=== PATIENT | male | born 1940 | race Caucasian/White ===

== ENCOUNTER → 2019-02-16 | Outpatient (CLI) | payer MEDICARE | LOC: WOUNDCARE 11:42 | PROVIDERS: ATTEND Surgery | DX: L97.512 Non-pressure chronic ulcer of other part of right foot with fat layer exposed (principal); E11.621 Type 2 diabetes mellitus with foot ulcer; E11.42 Type 2 diabetes mellitus with diabetic polyneuropathy; J44.9 Chronic obstructive pulmonary disease, unspecified; I12.0 Hypertensive chronic kidney disease with stage 5 chronic kidney disease or end stage renal disease; E11.22 Type 2 diabetes mellitus with diabetic chronic kidney disease | CPT/HCPCS: 11042 ==

== ENCOUNTER → 2019-03-02 | Outpatient (CLI) | payer MEDICARE | LOC: WOUNDCARE 14:26 | PROVIDERS: ATTEND Surgery | DX: L97.512 Non-pressure chronic ulcer of other part of right foot with fat layer exposed (principal); E11.621 Type 2 diabetes mellitus with foot ulcer; E11.52 Type 2 diabetes mellitus with diabetic peripheral angiopathy with gangrene; E11.42 Type 2 diabetes mellitus with diabetic polyneuropathy; J44.9 Chronic obstructive pulmonary disease, unspecified | CPT/HCPCS: 11042; 87070; 87077; 87186; 87205 ==

== ENCOUNTER → 2019-03-09 | Outpatient (CLI) | payer MEDICARE | LOC: WOUNDCARE 12:57 | PROVIDERS: ATTEND Surgery | DX: E11.621 Type 2 diabetes mellitus with foot ulcer (principal); E11.52 Type 2 diabetes mellitus with diabetic peripheral angiopathy with gangrene; E11.42 Type 2 diabetes mellitus with diabetic polyneuropathy; L97.512 Non-pressure chronic ulcer of other part of right foot with fat layer exposed; I96 Gangrene, not elsewhere classified; J44.9 Chronic obstructive pulmonary disease, unspecified | CPT/HCPCS: 11042 ==

== ENCOUNTER → 2019-03-17 | Outpatient (CLI) | payer MEDICARE | LOC: WOUNDCARE 13:18 | PROVIDERS: ATTEND Surgery | DX: L97.512 Non-pressure chronic ulcer of other part of right foot with fat layer exposed (principal); E11.621 Type 2 diabetes mellitus with foot ulcer; E11.42 Type 2 diabetes mellitus with diabetic polyneuropathy; E11.52 Type 2 diabetes mellitus with diabetic peripheral angiopathy with gangrene; J44.9 Chronic obstructive pulmonary disease, unspecified | CPT/HCPCS: 11042 ==

== ENCOUNTER → 2019-03-24 | Outpatient (CLI) | payer MEDICARE | LOC: WOUNDCARE 13:07 | PROVIDERS: ATTEND Surgery | DX: L97.512 Non-pressure chronic ulcer of other part of right foot with fat layer exposed (principal); E11.621 Type 2 diabetes mellitus with foot ulcer; E11.42 Type 2 diabetes mellitus with diabetic polyneuropathy; E11.52 Type 2 diabetes mellitus with diabetic peripheral angiopathy with gangrene; J44.9 Chronic obstructive pulmonary disease, unspecified | CPT/HCPCS: 11042 ==

== ENCOUNTER → 2019-03-31 | Outpatient (CLI) | payer MEDICARE | LOC: WOUNDCARE 13:11 | PROVIDERS: ATTEND Surgery | DX: E11.621 Type 2 diabetes mellitus with foot ulcer (principal); E11.42 Type 2 diabetes mellitus with diabetic polyneuropathy; E11.52 Type 2 diabetes mellitus with diabetic peripheral angiopathy with gangrene; L97.512 Non-pressure chronic ulcer of other part of right foot with fat layer exposed; J44.9 Chronic obstructive pulmonary disease, unspecified; L92.8 Other granulomatous disorders of the skin and subcutaneous tissue | CPT/HCPCS: 17250 ==

== ENCOUNTER → 2019-04-07 | Outpatient (CLI) | payer MEDICARE | LOC: WOUNDCARE 13:05 | PROVIDERS: ATTEND Surgery | DX: E11.621 Type 2 diabetes mellitus with foot ulcer (principal); E11.42 Type 2 diabetes mellitus with diabetic polyneuropathy; L97.512 Non-pressure chronic ulcer of other part of right foot with fat layer exposed; J44.9 Chronic obstructive pulmonary disease, unspecified | CPT/HCPCS: 99212 ==

== ENCOUNTER 2021-09-01 14:07 | Outpatient (CLI) | payer MEDICARE, BC | END 2021-09-01 15:05 | LOC: SLEEP 14:07 | PROVIDERS: ATTEND Otolaryngology Otolaryngology/Facial Plastic Surgery | DX: G47.33 Obstructive sleep apnea (adult) (pediatric) (principal); G47.10 Hypersomnia, unspecified | CPT/HCPCS: G0399 ==

== ENCOUNTER → 2022-05-21 | Outpatient (CLI) | payer MEDICARE, BC ==
[2022-05-21 14:53] LABS: BASOPHILS % (AUTO) 1 % (0-10); EOSINOPHILS # (AUTO) 0.1 10^3/uL (0.0-0.3); EOSINOPHILS % (AUTO) 1 % (0-10); HEMATOCRIT 37 % (40-54); HEMOGLOBIN 12.3 g/dL (13.3-17.7); LYMPHOCYTES # (AUTO) 0.9 10^3/uL (1.0-4.0); LYMPHOCYTES % (AUTO) 16 % (12-44); MEAN CORPUSCULAR HEMOGLOBIN 28 pg (25-34); MEAN CORPUSCULAR HGB CONC 33 g/dL (32-36); MEAN CORPUSCULAR VOLUME 85 fL (80-99); MEAN PLATELET VOLUME 9.1 fL (9.0-12.2); MONOCYTES # (AUTO) 0.6 10^3/uL (0.0-1.0); MONOCYTES % (AUTO) 11 % (0-12); NEUTROPHILS # (AUTO) 4.2 10^3/uL (1.8-7.8); NEUTROPHILS % (AUTO) 71 % (42-75); PLATELET COUNT 213 10^3/uL (130-400); WHITE BLOOD COUNT 5.9 10^3/uL (4.3-11.0)
[2022-05-21 15:14] LABS: ERYTHROCYTE SEDIMENTATION RATE 20 MM/HR (0-30)
== END ==
LOC: WOUNDCARE 13:30
PROVIDERS: ATTEND Family Medicine
DX: E11.621 Type 2 diabetes mellitus with foot ulcer (principal); L97.522 Non-pressure chronic ulcer of other part of left foot with fat layer exposed; E11.65 Type 2 diabetes mellitus with hyperglycemia; E11.40 Type 2 diabetes mellitus with diabetic neuropathy, unspecified; E66.01 Morbid (severe) obesity due to excess calories; R29.6 Repeated falls; Z68.31 Body mass index [BMI] 31.0-31.9, adult
CPT/HCPCS: 11042; 85025; 85652; 86141; 87070; 87205; A6197; G0463; 36415

== ENCOUNTER → 2022-05-30 | Outpatient (CLI) | payer MEDICARE, BC | LOC: WOUNDCARE 10:43 | PROVIDERS: ATTEND Family Medicine | DX: E11.621 Type 2 diabetes mellitus with foot ulcer (principal); E11.65 Type 2 diabetes mellitus with hyperglycemia; E11.40 Type 2 diabetes mellitus with diabetic neuropathy, unspecified; E66.01 Morbid (severe) obesity due to excess calories; L97.522 Non-pressure chronic ulcer of other part of left foot with fat layer exposed; I70.245 Atherosclerosis of native arteries of left leg with ulceration of other part of foot; I49.9 Cardiac arrhythmia, unspecified; I96 Gangrene, not elsewhere classified; E11.52 Type 2 diabetes mellitus with diabetic peripheral angiopathy with gangrene; Z68.31 Body mass index [BMI] 31.0-31.9, adult | CPT/HCPCS: 11042; A6197; G0463 ==

== ENCOUNTER → 2022-06-05 | Outpatient (CLI) | payer MEDICARE, BC ==
[~2022-06-05] MED LIST: CATHETER FLUSH 10 ML SYR IVP PRN; REGADENOSON 0.4 MG/5 ML SYR (LEXISCAN) IV ONE
[2022-06-05 08:18] VITALS: BP 147/67
--- NOTE | 2022-06-06 08:13 | Cardiology Stress Test Report ---
Stress Test Report Date of Procedure/Referring: Date of Procedure: Jun 05, 2022 PCP Alexandro Malhotra MD Admitting Physician Admitting Physician: Attending Physician: Atif Lomeli MD Baseline Heart Rate: 86 Baseline Blood Pressure: Blood Pressure Systolic: 147 Blood Pressure Diastolic: 67 Baseline Vitals Vital Signs Date Time Temp Pulse Resp B/P (MAP) Pulse Ox O2 Delivery O2 Flow Rate FiO2 06/05/22 08:18 86 147/67 (93) Baseline EKG: Baseline EKG: NSR Summary After explaining the procedure to the patient, he signed a consent and then brought to the stress nuclear laboratory. Patient received 0.4 mg Lexiscan for stress test, ECG, heart rate and blood pressure were monitored continuously. Resting and stress dose of radio tracer were injected, imaging was acquired and reviewed in short axis, horizontal long axis and vertical long axis views. TID: 1 SSS: 3 SDS: 2 EF: 75 1. Patient tolerated Lexiscan well 2. No significant ischemia or infarction noted on SPECT images 3. Normal left ventricular size, ejection fraction 75% Copy Copies To 1: [facility] [place] ATIF LOMELI MD Jun 06, 2022 08:13
== END ==
LOC: CARD 07:15
PROVIDERS: ATTEND Internal Medicine Cardiovascular Disease
DX: I10 Essential (primary) hypertension (principal); I25.10 Atherosclerotic heart disease of native coronary artery without angina pectoris; R07.2 Precordial pain
CPT/HCPCS: 78452; 93017; A9502

== ENCOUNTER → 2022-06-06 | Outpatient (CLI) | payer MEDICARE, BC | LOC: WOUNDCARE 10:03 | PROVIDERS: ATTEND Family Medicine | DX: E11.621 Type 2 diabetes mellitus with foot ulcer (principal); E11.65 Type 2 diabetes mellitus with hyperglycemia; E11.40 Type 2 diabetes mellitus with diabetic neuropathy, unspecified; E11.52 Type 2 diabetes mellitus with diabetic peripheral angiopathy with gangrene; I96 Gangrene, not elsewhere classified; L97.522 Non-pressure chronic ulcer of other part of left foot with fat layer exposed; E66.01 Morbid (severe) obesity due to excess calories; I70.245 Atherosclerosis of native arteries of left leg with ulceration of other part of foot; R29.6 Repeated falls; Z68.31 Body mass index [BMI] 31.0-31.9, adult | CPT/HCPCS: 11042; G0463 ==

== ENCOUNTER 2022-06-13 09:47 | Day surgery (SDC) | payer MEDICARE, BC ==
[~2022-06-13] VITALS: Ht 182.9 cm; Wt 105.4 kg
[2022-06-13] VITALS (11 sets, daily range): BP systolic 126–163; BP diastolic 65–81
[2022-06-13] MEDS ORDERED: LIDOCAINE 1% INJ 30 ML (XYLOCAINE) VIAL ONE (10:06)
[2022-06-13] MEDS ORDERED: HEParin (CATH LAB) 2,000 ML IV ONE (10:07)
[2022-06-13] MEDS ORDERED: NS IV 1000 ML 1,000 ML ONE (10:07)
[2022-06-13] MEDS ORDERED: NS IV 1000 ML 1,000 ML IV SCH ×2 (10:15→12:00)
[2022-06-13 10:29] LABS: HEMATOCRIT 42 % (40-54); HEMOGLOBIN 13.7 g/dL (13.3-17.7); MEAN CORPUSCULAR HEMOGLOBIN 28 pg (25-34); MEAN CORPUSCULAR HGB CONC 33 g/dL (32-36); MEAN CORPUSCULAR VOLUME 86 fL (80-99); MEAN PLATELET VOLUME 9.1 fL (9.0-12.2); PLATELET COUNT 282 10^3/uL (130-400); WHITE BLOOD COUNT 9.1 10^3/uL (4.3-11.0)
[2022-06-13 10:30] LABS: BILIRUBIN,URINE NEGATIVE (NEGATIVE); CLARITY,URINE CLEAR; COLOR,URINE YELLOW; GLUCOSE, URINE (UA) NEGATIVE (NEGATIVE); KETONES,URINE NEGATIVE (NEGATIVE); LEUKOCYTE ESTERASE ,URINE NEGATIVE (NEGATIVE); NITRITE,URINE NEGATIVE (NEGATIVE); PROTEIN,URINE NEGATIVE (NEGATIVE)
[2022-06-13 10:38] LABS: BACTERIA,URINE NEGATIVE /HPF; SQUAMOUS EPITHELIAL CELL,UR RARE /HPF; WBC,URINE RARE /HPF
[2022-06-13 10:42] LABS: ALBUMIN 3.9 GM/DL (3.2-4.5); INR 0.9 (0.8-1.4); POTASSIUM 4.2 MMOL/L (3.6-5.0); PROTHROMBIN TIME PATIENT 12.8 SEC (12.2-14.7)
[2022-06-13 10:43] LABS: CALCIUM 9.2 MG/DL (8.5-10.1)
[2022-06-13 10:45] LABS: TOTAL PROTEIN 7.4 GM/DL (6.4-8.2)
[2022-06-13 10:46] LABS: BILIRUBIN,TOTAL 0.8 MG/DL (0.1-1.0)
[2022-06-13 10:48] LABS: CREATININE SERUM 1.1 MG/DL (0.60-1.30)
--- NOTE | 2022-06-13 10:49 | Diagnostic Imaging Report ---
INDICATION: Preprocedure clearance. FINDINGS: Portable chest. The lungs are well aerated. There is very mild interstitial prominence noted in the lung bases. The heart is not enlarged. No pulmonary edema. No pneumothorax or pleural effusion. IMPRESSION: Minimal basilar interstitial lung disease. Dictated by: Dictated on workstation # [id number]
[2022-06-13] MEDS ORDERED: FLUO40CA12 PO (10:51)
[2022-06-13] MEDS ORDERED: LISI20TA26 PO (10:51)
[2022-06-13] MEDS ORDERED: LEVO250T66 PO (10:51)
[2022-06-13] MEDS ORDERED: INSU100I43 SQ (10:51)
[2022-06-13] MEDS ORDERED: FINA5TAB6 PO (10:51)
[2022-06-13] MEDS ORDERED: bipap (10:51)
[2022-06-13] MEDS ORDERED: OMEP20CA18 PO (10:51)
[2022-06-13] MEDS ORDERED: ROSU40TA23 PO (10:51)
[2022-06-13] MEDS ORDERED: BUDE10.2 IH (10:51)
[2022-06-13] MEDS ORDERED: SODI1TAB PO (10:51)
[2022-06-13] MEDS ORDERED: TRZ50T PO (10:51)
[2022-06-13] MEDS ORDERED: MIDAZOLAM 5 MG/5 ML (VERSED) VIAL ONE (11:15)
[2022-06-13] MEDS ORDERED: fentaNYL INJ 100 MCG/2 ML AMP ONE (11:15)
[2022-06-13] MEDS ORDERED: PATIENT MAY USE OWN MEDS, ALL PO SCH (12:00)
--- NOTE | 2022-06-13 12:01 | Discharge Inst-Post CATH ---
Discharge Inst-CATH/EP Problems Reviewed?: Yes Post Cardiac Cath/EP D/C Inst Follow Up/Plan Appointment with Dr. Lomeli's office in 2 to 4 weeks <b>CARDIAC CATH/EP PROCEDURE DISCHARGE INSTRUCTIONS</b> ACTIVITY * Go Home directly and rest. * Limit activity of the leg (or wrist if it was used) for 7 days including aer obics, swimming, jogging, bicycling, etc. * Restrict stair-climbing for 7 days if possible, if not, climb up with your non-cath leg, then bring together on the same step. * Avoid lifting, pushing, pulling or excessive movement of the affected extremi ty for 7 days. * Customary sexual activity may be resumed after 2 days-use caution not to use a position that strains or causes pain to the affected extremity. * No driving for 24 hours. * NO SMOKING. * Avoid straining for bowel movements for 7 days. * Gentle walking on level ground is allowed. * Returning to work will depend on the type of procedure and the results. Your doctor will discuss this with you. CALL YOUR DOCTOR FOR ANY OF THE FOLLOWING: *If bleeding from the puncture site occurs- Apply gentle pressure to site with clean cloth and call your doctor or EMS. * If a knot or lump forms under the skin, increases in size, or causes pain. * If bruising appears to be worsening or moving further down your leg instead of disappearing. * Temperature above 101 F. CARE OF YOUR GROIN INCISION; * Bruising or purple discoloration of the skin near the puncture site is common. * You may shower only, no bathtub bathing for 5 days. Be careful to avoid slipping as your leg may feel stiff. * If a closure device was used on your femoral artery, please see the attached guide regarding care of the device and your leg. * Leave dressing on FOR 24 hours. CARE OF YOUR WRIST INCISION; * Bruising or purple discoloration of the skin near the puncture site is common. * You may shower. * DO NOT submerge wrist. * Leave dressing on FOR 24 hours. ATIF LOMELI MD Jun 13, 2022 12:01
--- NOTE | 2022-06-13 12:06 | Peripheral Report ---
Peripheral Report Physician (s)/Systems Integration Advisor (s) Physician ATIF HARRINGTON MD Pre-Procedure Diagnosis Pre-Procedure Diagnosis: Nonhealing foot ulcer Post-Procedure Note Procedure Start Date: Jun 13, 2022 Name of Procedure: Bilateral lower extremity runoff Third order Additional imaging x2 Findings/Procedure Note PROCEDURE NOTE: 81-year-old gentleman with history of hypertension, hyperlipidemia, had nonhealing ulcer on his left first toe, had abnormal GIANLUCA/TBI After explaining the procedure to the patient, all pros and cons were explained, all questions were answered. The patient signed the consent and then he was placed on the cardiac catheterization laboratory. The patient was placed on the cardiac catheterization laboratory. Groin was prepped SL fashion local anesthesia was used. Sheath placed in the right femoral artery, runoff to the right leg was done. Then rim catheter was placed at the bifurcation and runoff to the left leg was done. Long Storq wire was used and a straight catheter was placed in the popliteal artery just above the trifurcation and DSA imaging to the trifurcation was done then a second imaging with DSA was done at the level of the foot. At the end of the procedure sheath was removed and Mynx device deployed FINDINGS: Right lower extremity: Right SFA has mild disease with slow flow nonobstructive disease At the trifurcation the anterior tibial, posterior tibial and peroneal artery has slow flow with no obstructive disease Left lower extremity Common iliac has mild disease Common femoral slightly tortuous with mild disease SFA has mild irregularity with no significant obstructive disease Popliteal artery has no obstructive disease Anterior tibial artery has good runoff down to the dorsalis pedis Peroneal artery has good runoff with no obstructive disease Posterior tibial artery is smaller artery with slow flow, occlusion distally just above the ankle. Getting collaterals from the anterior tibial artery. CONCLUSIONS: 1. Occlusion of the left posterior tibial artery distally, very small artery an d receiving full collaterals from the anterior tibial artery otherwise no significant obstructive disease, slow flow due to small vessel disease 2. Otherwise no significant obstructive disease on the left lower extremity 3. Mild disease on the right lower extremity with no obstructive disease down to the trifurcation DISCUSSION AND RECOMMENDATIONS: Continue to maximize medical therapy. No intervention is warranted Estimated blood loss (mL): 15 ml Contrast Amount: 24 ml Total Radiation Dose: 43 mGy Post-Procedure Diagnosis Post-operative diagnosis: Nonhealing foot ulcer Peripheral arterial disease Hypertension Hyperlipidemia ATIF HARRINGTON MD Jun 13, 2022 12:06
== END 2022-06-13 16:45 | disposition home or self-care (01) ==
LOC: CATH 09:47 → SDC 12:20 → CATH 16:45
PROVIDERS: ATTEND Internal Medicine Cardiovascular Disease
DX: I70.249 Atherosclerosis of native arteries of left leg with ulceration of unspecified site (principal); L97.929 Non-pressure chronic ulcer of unspecified part of left lower leg with unspecified severity; I70.239 Atherosclerosis of native arteries of right leg with ulceration of unspecified site; L97.919 Non-pressure chronic ulcer of unspecified part of right lower leg with unspecified severity; E11.9 Type 2 diabetes mellitus without complications; I10 Essential (primary) hypertension; E78.5 Hyperlipidemia, unspecified; J44.9 Chronic obstructive pulmonary disease, unspecified; E03.9 Hypothyroidism, unspecified; N40.0 Benign prostatic hyperplasia without lower urinary tract symptoms; Z79.4 Long term (current) use of insulin
CPT/HCPCS: 36247; 36248; 71045; 75716; 80053; 80061; 81000; 85027; 85610; 85730; 87081; C1760; C1769; C1887 ×2; C1894; 36415

== ENCOUNTER → 2022-06-20 | Outpatient (CLI) | payer MEDICARE, BC ==
[~2022-06-20] MED LIST changes: +BUDE10.2 IH; -CATHETER FLUSH 10 ML SYR IVP PRN; +FINA5TAB6 PO; +FLUO40CA12 PO; +INSU100I43 SQ; +LEVO250T66 PO; +LISI20TA26 PO; +OMEP20CA18 PO; -REGADENOSON 0.4 MG/5 ML SYR (LEXISCAN) IV ONE; +ROSU40TA23 PO; +SODI1TAB PO; +TRZ50T PO; +bipap
== END ==
LOC: WOUNDCARE 09:08
PROVIDERS: ATTEND Family Medicine
DX: L97.522 Non-pressure chronic ulcer of other part of left foot with fat layer exposed (principal); E11.621 Type 2 diabetes mellitus with foot ulcer; E11.65 Type 2 diabetes mellitus with hyperglycemia; E11.40 Type 2 diabetes mellitus with diabetic neuropathy, unspecified; E66.01 Morbid (severe) obesity due to excess calories; I70.245 Atherosclerosis of native arteries of left leg with ulceration of other part of foot; R29.6 Repeated falls; E11.52 Type 2 diabetes mellitus with diabetic peripheral angiopathy with gangrene
CPT/HCPCS: 11042; G0463

== ENCOUNTER → 2022-06-27 | Outpatient (CLI) | payer BC, MEDICARE | LOC: WOUNDCARE 08:57 | PROVIDERS: ATTEND Family Medicine | DX: L97.522 Non-pressure chronic ulcer of other part of left foot with fat layer exposed (principal); E11.621 Type 2 diabetes mellitus with foot ulcer; E11.65 Type 2 diabetes mellitus with hyperglycemia; E11.40 Type 2 diabetes mellitus with diabetic neuropathy, unspecified; E66.01 Morbid (severe) obesity due to excess calories; R29.6 Repeated falls; I70.245 Atherosclerosis of native arteries of left leg with ulceration of other part of foot; E11.52 Type 2 diabetes mellitus with diabetic peripheral angiopathy with gangrene; I96 Gangrene, not elsewhere classified | CPT/HCPCS: 11042; G0463 ==

== ENCOUNTER → 2022-07-05 | Outpatient (CLI) | payer MEDICARE ==
--- NOTE | 2022-07-05 13:58 | Diagnostic Imaging Report ---
FOOT, LEFT, 3 VIEWS INDICATION: Ulcer of the great toe COMPARISON: None available. TECHNIQUE: Three non-weightbearing views of foot were obtained. FINDINGS: Ulcer is present along the medial aspect of the great toe at the level of the IP joint. No soft tissue gas outside the ulcer. No erosion of the underlying distal or proximal phalanges in the great toe. No erosions or fracture elsewhere. There is an 8 mm thin metallic foreign body in the plantar soft tissues at the 3rd webspace. IMPRESSION: 1. No radiographic features of osteomyelitis in the great toe phalanges. 2. Incidental note is made of a metallic foreign body in the plantar aspect of the 3rd intermetatarsal web space. Dictated by: Dictated on workstation # [id number]
== END ==
LOC: WOUNDCARE 09:07
PROVIDERS: ATTEND Family Medicine
DX: L97.522 Non-pressure chronic ulcer of other part of left foot with fat layer exposed (principal); E11.621 Type 2 diabetes mellitus with foot ulcer; E11.65 Type 2 diabetes mellitus with hyperglycemia; E11.40 Type 2 diabetes mellitus with diabetic neuropathy, unspecified; E66.01 Morbid (severe) obesity due to excess calories; R29.6 Repeated falls; I70.245 Atherosclerosis of native arteries of left leg with ulceration of other part of foot; E11.52 Type 2 diabetes mellitus with diabetic peripheral angiopathy with gangrene; I96 Gangrene, not elsewhere classified
CPT/HCPCS: 11042; 73630; G0463

== ENCOUNTER → 2022-07-11 | Outpatient (CLI) | payer MEDICARE | LOC: WOUNDCARE 09:03 | PROVIDERS: ATTEND Family Medicine | DX: I96 Gangrene, not elsewhere classified (principal); E11.621 Type 2 diabetes mellitus with foot ulcer; E11.65 Type 2 diabetes mellitus with hyperglycemia; E11.40 Type 2 diabetes mellitus with diabetic neuropathy, unspecified; E66.01 Morbid (severe) obesity due to excess calories; I70.245 Atherosclerosis of native arteries of left leg with ulceration of other part of foot; L97.522 Non-pressure chronic ulcer of other part of left foot with fat layer exposed; R29.6 Repeated falls; Z68.32 Body mass index [BMI] 32.0-32.9, adult | CPT/HCPCS: 11042; A6021; G0463 ==

== ENCOUNTER → 2022-07-31 | Outpatient (CLI) | payer MEDICARE | LOC: WOUNDCARE 08:42 | PROVIDERS: ATTEND Family Medicine | DX: E11.621 Type 2 diabetes mellitus with foot ulcer (principal); L97.522 Non-pressure chronic ulcer of other part of left foot with fat layer exposed; E11.65 Type 2 diabetes mellitus with hyperglycemia; E11.40 Type 2 diabetes mellitus with diabetic neuropathy, unspecified; E66.01 Morbid (severe) obesity due to excess calories; R29.6 Repeated falls; I70.245 Atherosclerosis of native arteries of left leg with ulceration of other part of foot; E11.52 Type 2 diabetes mellitus with diabetic peripheral angiopathy with gangrene | CPT/HCPCS: 15275; G0463 ==

== ENCOUNTER → 2022-08-07 | Outpatient (CLI) | payer MEDICARE | LOC: WOUNDCARE 08:51 | PROVIDERS: ATTEND Family Medicine | DX: I96 Gangrene, not elsewhere classified (principal); I70.245 Atherosclerosis of native arteries of left leg with ulceration of other part of foot; L97.522 Non-pressure chronic ulcer of other part of left foot with fat layer exposed; E11.621 Type 2 diabetes mellitus with foot ulcer; E11.65 Type 2 diabetes mellitus with hyperglycemia; E11.40 Type 2 diabetes mellitus with diabetic neuropathy, unspecified; E66.01 Morbid (severe) obesity due to excess calories; R29.6 Repeated falls; Z68.32 Body mass index [BMI] 32.0-32.9, adult | CPT/HCPCS: 15275; G0463 ==

== ENCOUNTER → 2022-08-14 | Outpatient (CLI) | payer MEDICARE ==
[2022-08-14 10:02] LABS: ALBUMIN 3.7 GM/DL (3.2-4.5); BILIRUBIN,TOTAL 0.7 MG/DL (0.1-1.0); CALCIUM 9.2 MG/DL (8.5-10.1); CREATININE SERUM 1.14 MG/DL (0.60-1.30); TOTAL PROTEIN 6.9 GM/DL (6.4-8.2)
== END ==
LOC: WOUNDCARE 08:43
PROVIDERS: ATTEND Family Medicine
DX: E11.621 Type 2 diabetes mellitus with foot ulcer (principal); L97.522 Non-pressure chronic ulcer of other part of left foot with fat layer exposed; E11.65 Type 2 diabetes mellitus with hyperglycemia; E11.40 Type 2 diabetes mellitus with diabetic neuropathy, unspecified; E66.01 Morbid (severe) obesity due to excess calories; R29.6 Repeated falls; I70.245 Atherosclerosis of native arteries of left leg with ulceration of other part of foot; E11.52 Type 2 diabetes mellitus with diabetic peripheral angiopathy with gangrene
CPT/HCPCS: 15275; 80053; 83036; G0463; 36415

== ENCOUNTER → 2022-08-21 | Outpatient (CLI) | payer MEDICARE | LOC: WOUNDCARE 09:14 | PROVIDERS: ATTEND Family Medicine | DX: L97.522 Non-pressure chronic ulcer of other part of left foot with fat layer exposed (principal); E11.621 Type 2 diabetes mellitus with foot ulcer; E11.65 Type 2 diabetes mellitus with hyperglycemia; E11.40 Type 2 diabetes mellitus with diabetic neuropathy, unspecified; E66.01 Morbid (severe) obesity due to excess calories; R29.6 Repeated falls; I70.245 Atherosclerosis of native arteries of left leg with ulceration of other part of foot | CPT/HCPCS: 15275; G0463 ==

== ENCOUNTER → 2022-08-28 | Outpatient (CLI) | payer MEDICARE | LOC: WOUNDCARE 08:45 | PROVIDERS: ATTEND Family Medicine | DX: L97.522 Non-pressure chronic ulcer of other part of left foot with fat layer exposed (principal); E11.621 Type 2 diabetes mellitus with foot ulcer; E11.65 Type 2 diabetes mellitus with hyperglycemia; E11.40 Type 2 diabetes mellitus with diabetic neuropathy, unspecified; E66.01 Morbid (severe) obesity due to excess calories; R29.6 Repeated falls; I70.245 Atherosclerosis of native arteries of left leg with ulceration of other part of foot | CPT/HCPCS: 15275; G0463 ==

== ENCOUNTER → 2022-09-04 | Outpatient (CLI) | payer MEDICARE | LOC: WOUNDCARE 08:43 | PROVIDERS: ATTEND Family Medicine | DX: T25.032A Burn of unspecified degree of left toe(s) (nail), initial encounter (principal); J44.9 Chronic obstructive pulmonary disease, unspecified; E11.22 Type 2 diabetes mellitus with diabetic chronic kidney disease; I12.9 Hypertensive chronic kidney disease with stage 1 through stage 4 chronic kidney disease, or unspecified chronic kidney disease; N18.6 End stage renal disease; Z99.2 Dependence on renal dialysis; E11.40 Type 2 diabetes mellitus with diabetic neuropathy, unspecified | CPT/HCPCS: A6021; G0463; 99212 ==

== ENCOUNTER → 2022-09-12 | Outpatient (CLI) | payer MEDICARE | LOC: WOUNDCARE 09:51 | PROVIDERS: ATTEND Family Medicine | DX: E11.621 Type 2 diabetes mellitus with foot ulcer (principal); L97.522 Non-pressure chronic ulcer of other part of left foot with fat layer exposed; L97.509 Non-pressure chronic ulcer of other part of unspecified foot with unspecified severity; E11.65 Type 2 diabetes mellitus with hyperglycemia; E11.40 Type 2 diabetes mellitus with diabetic neuropathy, unspecified; E66.01 Morbid (severe) obesity due to excess calories; R29.6 Repeated falls; I70.245 Atherosclerosis of native arteries of left leg with ulceration of other part of foot | CPT/HCPCS: 11042; A6021; G0463 ==

== ENCOUNTER → 2022-09-18 | Outpatient (CLI) | payer MEDICARE | LOC: WOUNDCARE 08:40 | PROVIDERS: ATTEND Family Medicine | DX: L97.522 Non-pressure chronic ulcer of other part of left foot with fat layer exposed (principal); E11.621 Type 2 diabetes mellitus with foot ulcer; E11.65 Type 2 diabetes mellitus with hyperglycemia; E11.40 Type 2 diabetes mellitus with diabetic neuropathy, unspecified; E66.01 Morbid (severe) obesity due to excess calories; R29.6 Repeated falls; I70.245 Atherosclerosis of native arteries of left leg with ulceration of other part of foot | CPT/HCPCS: 99213 ==

== ENCOUNTER 2023-05-12 11:58 | Emergency (ER) | payer MEDICARE ==
[2023-05-12 12:17] LABS: HEMATOCRIT 39 % (40-54); HEMOGLOBIN 12.6 g/dL (13.3-17.7); MEAN CORPUSCULAR HEMOGLOBIN 29 pg (25-34); MEAN CORPUSCULAR HGB CONC 33 g/dL (32-36); MEAN CORPUSCULAR VOLUME 89 fL (80-99); PLATELET COUNT 236 10^3/uL (130-400)
[2023-05-12] MEDS ORDERED: fentaNYL INJECTION 100 MCG/2 ML VIAL ONE (12:18)
[2023-05-12] MEDS ORDERED: fentaNYL INJECTION 100 MCG/2 ML VIAL IVP STA ×2 (12:19→12:56)
[2023-05-12 12:24] LABS: INR 1.1 (0.8-1.4); PROTHROMBIN TIME PATIENT 14.7 SEC (12.2-14.7)
[2023-05-12 12:25] LABS: ALBUMIN 3.6 GM/DL (3.2-4.5); CHLORIDE 102 MMOL/L (98-107); PARTIAL THROMBOPLASTIN TIME 32 SEC (24-35); POTASSIUM 4.1 MMOL/L (3.6-5.0); SODIUM 135 MMOL/L (135-145)
[2023-05-12 12:26] LABS: CALCIUM 8.5 MG/DL (8.5-10.1)
[2023-05-12 12:27] LABS: GLUCOSE 252 MG/DL (70-105)
[2023-05-12 12:28] LABS: CARBON DIOXIDE 24 MMOL/L (21-32); TOTAL PROTEIN 6.6 GM/DL (6.4-8.2)
[2023-05-12 12:29] LABS: BILIRUBIN,TOTAL 0.8 MG/DL (0.1-1.0)
[2023-05-12 12:30] LABS: PHOSPHORUS 2.7 MG/DL (2.3-4.7)
[2023-05-12] MEDS ORDERED: IOHEXOL 350 MG/ML 100 ML (OMNIPAQUE 350) VIAL IV ONE (12:30)
[2023-05-12] MEDS ORDERED: Tetanus/Diphtheria/Pertussis (Acell) ADULT Vaccine 0.5 ML IM ONE (12:30)
[2023-05-12] MEDS ORDERED: HOLD METFORMIN - RECEIVED CONTRAST 20 ML VIAL IV SCH (12:30)
[2023-05-12] MEDS ORDERED: NS 100 ML (IVPB) BAG IV ONE (12:30)
[2023-05-12 12:31] LABS: ALKALINE PHOSPHATASE 84 U/L (40-136); GFR ESTIMATED 66
[2023-05-12 12:32] LABS: BILIRUBIN,DIRECT 0.4 MG/DL (0.0-0.3); BILIRUBIN,INDIRECT 0.4 MG/DL; BUN/CREATININE RATIO 12
[2023-05-12 12:34] LABS: ALANINE AMINOTRANSFERASE 43 U/L (0-55); MAGNESIUM 1.8 MG/DL (1.6-2.4)
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
[2023-05-12 12:47] LABS: FIBRIN DEGRADATION PRODUCTS > 20.00 UG/ML (0.00-0.49)
[2023-05-12 13:04] LABS: FIBRINOGEN 459 MG/DL (221-496)
--- NOTE | 2023-05-12 13:04 | ED Trauma-Vehiclar ---
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 ribs, left side, initial encounter for closed fracture Multiple abrasions Multiple lacerations Orbital floor fracture Qualified Codes: S02.32XA - Fracture of orbital floor, left side, initial encounter for closed fracture Disposition: 02 XFER SHT-TRM HOSP Condition: Stable Transfer Transfer Reason: Exceeds level of care Time Spoke to Accepting Phy: 14:10 Transfer Progress Notes Spoke with Melissa triage nurse to provide accepting physician of Dr. Carlitos Lopez to [facility]. All films clouded to [facility]. Transfer Time: 14:27 Transfer Facility: Patient to be transferred via air methods to [facility]. Dr. Lopez accepting Method of Transfer: Air Departure-Patient Inst. Referrals: JOSE BAIN MD (PCP) Primary Care Physician NO,LOCAL PHYSICIAN (Family) Primary Care Physician FLOR DIETZ MD May 12, 2023 13:04
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
[2023-05-12] MEDS ORDERED: ONDANSETRON INJECTION 4 MG/2 ML (SDV) ONE (13:29)
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
[2023-05-12 13:51] LABS: CLARITY,URINE CLEAR; COLOR,URINE YELLOW; GLUCOSE, URINE (UA) NEGATIVE (NEGATIVE); PROTEIN,URINE 2+ (NEGATIVE)
[2023-05-12 13:52] LABS: BACTERIA,URINE NEGATIVE /HPF; BILIRUBIN,URINE NEGATIVE (NEGATIVE); KETONES,URINE NEGATIVE (NEGATIVE); LEUKOCYTE ESTERASE ,URINE NEGATIVE (NEGATIVE); NITRITE,URINE NEGATIVE (NEGATIVE); RBC,URINE 25-50 /HPF
[2023-05-12 13:55] LABS: AMPHETAMINE SCREEN, URINE NEGATIVE (NEGATIVE); BARBITURATE SCREEN URINE NEGATIVE (NEGATIVE); CANNABINOID SCREEN, URINE NEGATIVE (NEGATIVE); COCAINE SCREEN URINE NEGATIVE (NEGATIVE); METHADONE STAT NEGATIVE (NEGATIVE); OPIATE SCREEN URINE NEGATIVE (NEGATIVE); OXYCODONE STAT NEGATIVE (NEGATIVE); TRICYCLIC ANTIDEPRESSANTS SCRE NEGATIVE (NEGATIVE)
[2023-05-12] MEDS ORDERED: PROMETHAZINE INJ 25 MG/ML VIAL IVP ONE (14:15)
[2023-05-12 14:27] VITALS: BP 97/52
== END 2023-05-12 14:27 | disposition short-term general hospital (02) ==
LOC: EDUNIT# 11:58 → ER 11:59
DX: S22.42XA Multiple fractures of ribs, left side, initial encounter for closed fracture (principal); S22.018A Other fracture of first thoracic vertebra, initial encounter for closed fracture; S22.028A Other fracture of second thoracic vertebra, initial encounter for closed fracture; S32.018A Other fracture of first lumbar vertebra, initial encounter for closed fracture; S32.028A Other fracture of second lumbar vertebra, initial encounter for closed fracture; S32.038A Other fracture of third lumbar vertebra, initial encounter for closed fracture; S72.091A Other fracture of head and neck of right femur, initial encounter for closed fracture; S02.32XA Fracture of orbital floor, left side, initial encounter for closed fracture; S12.190A Other displaced fracture of second cervical vertebra, initial encounter for closed fracture; S12.590A Other displaced fracture of sixth cervical vertebra, initial encounter for closed fracture; S12.690A Other displaced fracture of seventh cervical vertebra, initial encounter for closed fracture; S01.81XA Laceration without foreign body of other part of head, initial encounter; S50.812A Abrasion of left forearm, initial encounter; S40.212A Abrasion of left shoulder, initial encounter; S80.212A Abrasion, left knee, initial encounter; S80.211A Abrasion, right knee, initial encounter; G47.30 Sleep apnea, unspecified; Z99.89 Dependence on other enabling machines and devices; V53.5XXA Driver of pick-up truck or van injured in collision with car, pick-up truck or van in traffic accident, initial encounter; Y92.410 Unspecified street and highway as the place of occurrence of the external cause
CPT/HCPCS: 51702; 70450; 70486; 71045; 71260; 72125; 72170; 73090; 74177; 80048; 80076; 80306; 81000; 83735; 84100; 85027; 85379; 85384; 85610; 85730; 86850; 86900; 86901; 90471; 93041; 96374; 96375; 96376; 99291; 99292; G0390; G0480; 36415; 80320; 90715